=== PATIENT | female | born 1990 | race Caucasian/White ===

== ENCOUNTER 2016-11-08 20:15 | Emergency (ER) | payer OTHER ==
[~2016-11-08] VITALS: Ht 154.9 cm; Wt 44.5 kg
[2016-11-08 20:20] VITALS: Ht 154.9 cm; Wt 44.5 kg
[2016-11-08] MEDS ORDERED: LORAZEPAM 0.5 MG TAB PO ONE (22:00)
[2016-11-08 22:07] LABS: BASOPHILS % 0.4 % (0.0-2.0); EOSINOPHILS # 0.1 10^3/ul (0.0-0.5); EOSINOPHILS % 0.9 % (0.0-7.0); HEMATOCRIT 38.5 % (37.0-47.0); HEMOGLOBIN 12.9 g/dl (12.0-16.0); LYMPHOCYTES # 2.5 10^3/ul (0.8-2.9); LYMPHOCYTES % 24.1 % (15.0-51.0); MEAN CORPUSCULAR HEMOGLOBIN 30.1 pg (29.0-33.0); MEAN CORPUSCULAR HGB CONC 33.5 g/dl (32.0-37.0); MEAN CORPUSCULAR VOLUME 89.7 fl (82.0-101.0); MEAN PLATELET VOLUME 9.1 fl (7.4-10.4); MONOCYTE # 0.5 10^3/ul (0.3-0.9); MONOCYTES % 4.4 % (0.0-11.0); NEUTROPHIL # 7.3 10^3/ul (1.6-7.5); NEUTROPHILS % 69.8 % (39.0-77.0); PLATELET COUNT 339 10^3/UL (140-415); RED BLOOD COUNT 4.29 10^6/ul (4.20-5.40); RED CELL DISTRIBUTION WIDTH 12.2 % (11.5-14.5); WHITE BLOOD COUNT 10.4 10^3/ul (4.8-10.8)
[2016-11-08 22:08] LABS: URINE BLOOD (Dip) POC Negative (NEGATIVE)
[2016-11-08 22:25] LABS: CALCIUM 9.5 mg/dl (8.4-10.2); CREATININE 0.67 mg/dl (0.44-1.00)
[2016-11-08 22:30] LABS: POTASSIUM 3.9 mmol/L (3.5-5.1)
--- NOTE | 2016-11-08 22:44 | RADRPT ---
PROCEDURE: XR Chest. CLINICAL INDICATION: Chest pain. Shortness of breath. TECHNIQUE: Single frontal chest x-ray. COMPARISON: None available. FINDINGS: The cardiomediastinal silhouette is unremarkable. No pneumothorax, pleural effusion or consolidation is seen. No acute osseous abnormality is noted. IMPRESSION: 1. No acute cardiopulmonary abnormality. RPTAT: HFN .Trina Coleman MD, Date Time Electronically viewed and signed by .Trina Coleman MD, on 11/08/2016 22:43 .N/
[2016-11-08] MEDS ORDERED: LORA-441 PO (22:50)
[2016-11-08 22:59] VITALS: BP 127/59; PULSE 78; RESP 20
--- NOTE | 2016-11-08 23:01 | ERD ---
ER Documentation Chief Complaint Date/Time DATE: 11/08/16 TIME: 22:58 Chief Complaint LEFT CP SEEN BY PARAMEDICS AT SCHOOL, SOB AT THIS TIME,MAYBE "PANIC ATTACK" HPI This is a 25-year-old female presenting to emergency department with left-sided chest pain and shortness of breath earlier today about 1 hour prior to arrival. Patient states she was sitting in class reading when suddenly she felt sudden onset left-sided chest pain and shortness of breath. Patient states she had numbness and tingling to her extremities and felt like she was going to pass out. Patient went outside and states her teacher called paramedics. Paramedics came and told patient that she may have a "panic attack." ROS All systems reviewed and are negative except as per history of present illness. Medications Home Meds Active Scripts Lorazepam* (Ativan*) 0.5 Mg Tablet, 0.5 MG PO Q8, #10 TAB Prov:INOCENCIA WOMACK CHUY 11/08/16 PMhx/Soc Medical and Surgical Hx: pt denies Medical Hx, pt denies Surgical Hx Hx Alcohol Use: Yes Hx Substance Use: No Hx Tobacco Use: No Smoking Status: Never smoker Physical Exam Vitals Vital Signs Date Time Temp Pulse Resp B/P Pulse Ox O2 Delivery O2 Flow Rate FiO2 11/08/16 22:59 78 20 127/59 99 Room Air 11/08/16 20:20 99.3 83 18 131/63 100 Physical Exam Const: No acute distress, alert and oriented to person, place and time Head: Atraumatic Eyes: Normal Conjunctiva ENT: Normal External Ears, Nose and Mouth. Neck: Full range of motion..~ No meningismus. Resp: Clear to auscultation bilaterally Cardio: Regular rate and rhythm, no murmurs Abd: Soft, non tender, non distended. Normal bowel sounds Skin: No petechiae or rashes Back: No midline or flank tenderness Ext: No cyanosis, or edema Neur: Awake and alert Psych: Normal Mood and Affect Result Diagram: 11/08/16214711/08/162147 Results 24 hrs Laboratory Tests Test 11/08/16 21:48 11/08/16 22:15 White Blood Count 10.410^3/ul Red Blood Count 4.2910^6/ul Hemoglobin 12.9g/dl Hematocrit 38.5% Mean Corpuscular Volume 89.7fl Mean Corpuscular Hemoglobin 30.1pg Mean Corpuscular Hemoglobin Concent 33.5g/dl Red Cell Distribution Width 12.2% Platelet Count 90705^3/UL Mean Platelet Volume 9.1fl Neutrophils % 69.8% Lymphocytes % 24.1% Monocytes % 4.4% Eosinophils % 0.9% Basophils % 0.4% Nucleated Red Blood Cells % 0.0/100WBC Neutrophils # 7.310^3/ul Lymphocytes # 2.510^3/ul Monocytes # 0.510^3/ul Eosinophils # 0.110^3/ul Basophils # 0.010^3/ul Nucleated Red Blood Cells # 0.010^3/ul Sodium Level 138mmol/L Potassium Level 3.9mmol/L Chloride Level 104mmol/L Carbon Dioxide Level 24mmol/L Anion Gap 14 Blood Urea Nitrogen 11mg/dl Creatinine 0.67mg/dl Glucose Level 97mg/dl Calcium Level 9.5mg/dl Bedside Urine pH (LAB) 6.5 Bedside Urine Protein (LAB) Negative Bedside Urine Glucose (UA) Negative Bedside Urine Ketones (LAB) Negative Bedside Urine Blood Negative Bedside Urine Nitrite (LAB) Negative Bedside Urine Leukocyte Esterase (L Negative Current Medications Medications (Trade) Dose Ordered Sig/Yadi Route PRN Reason Start Time Stop Time Status Last Admin Dose Admin Lorazepam (Ativan) 0.5 mg ONCE ONCE PO 11/08/16 22:00 11/08/16 22:01 DC 11/08/16 22:12 Procedures/[place] [id number] Radiology Main Line: [phone] DIAGNOSTIC IMAGING REPORT Patient: MAXIMUS HICKEY : 1990 Age: 25 Sex: F MR #: [id number] DOS: 11/08/16 2138 Ordering MD: INOCENCIA WOMACK NP Location: [facility] Room/Bed: PROCEDURE: XR Chest. CLINICAL INDICATION: Chest pain. Shortness of breath. TECHNIQUE: Single frontal chest x-ray. COMPARISON: None available. FINDINGS: The cardiomediastinal silhouette is unremarkable. No pneumothorax, pleural effusion or consolidation is seen. No acute osseous abnormality is noted. IMPRESSION: 1. No acute cardiopulmonary abnormality. EKG: As interpreted by myself and Dr. Borm Rate/Rhythm: Normal sinus rhythm with sinus arrhythmia, heart rate 85 bpm QRS, ST, T-waves: No changes consistent w/ acute ischemia Impression: No evidence of ischemia or arrhythmia MDM: This is a 25-year-old female presenting to emergency department with chest pain, shortness of breath and possible anxiety starting earlier today about 1 hour prior to arrival. Patient states currently she is feeling better and not feeling short of breath. Denies chest pain or difficulty breathing. States she still has some chest tightness. Vital signs are stable. No signs or symptoms of respiratory distress. Oxygen saturation 100% on room air with 18 respirations per minute. Labs, urine, EKG and chest x-ray ordered. Patient given Lorazepam 0.5 mg p.o. while in the ED. CBC shows no significant electrolyte imbalance. Anemia or infection. BMP shows no significant electrolyte imbalance. Urine dip is negative for infection. Urine is negative. EKG shows normal sinus rhythm with sinus arrhythmia with heart rate 85 bpm. Chest x-ray reviewed by radiologist as no acute cardiopulmonary abnormality. Upon reassessment, patient states chest pain, shortness of breath has improved. Patient no longer feels anxious. Differential diagnosis includes but not limited to pneumonia, Anxiety,bronchitis , pleurisy, costochondritis, gastroesophageal reflux,musculoskeletal chest pain and esophageal spasm. Low suspicion for acute coronary syndrome, pulmonary embolism, pneumothorax, aortic dissection and myocardial infarction. Patient is appropriate for outpatient management and will be discharged as stable. Patient given prescription for lorazepam 0.5 mg #10.Instructed patient to follow up with primary care provider in the next 24-48 hours. Resources provided. Return to ED for worsening pain, abdominal pain, vomiting, diarrhea, high fever or any new or worsening symptoms. Patient verbalizes understanding. All questions answered at discharge. Disclaimer: Inadvertent spelling and grammatical errors are likely due to EHR/ dictation software use and do not reflect on the overall quality of patient care. Also, please note that the electronic time recorded on this note does not necessarily reflect the actual time of the patient encounter. Departure Diagnosis: Primary Impression: Chest pain Chest pain type: unspecified Qualified Code: R07.9 - Chest pain, unspecified type Additional Impression: Anxiety Condition: Stable Patient Instructions: Your Body's Response to Anxiety, Anxiety Reaction, Chest Pain, Uncertain Cause Referrals: [facility] YOU HAVE RECEIVED A MEDICAL SCREENING EXAM AND THE RESULTS INDICATE THAT YOU DO NOT HAVE A CONDITION THAT REQUIRES URGENT TREATMENT IN THE EMERGENCY DEPARTMENT. FURTHER EVALUATION AND TREATMENT OF YOUR CONDITION CAN WAIT UNTIL YOU ARE SEEN IN YOUR DOCTORS OFFICE WITHIN THE NEXT 1-2 DAYS. IT IS YOUR RESPONSIBILITY TO MAKE AN APPOINTMENT FOR FOLOW-UP CARE. IF YOU HAVE A PRIMARY DOCTOR --you should call your primary doctor and schedule an appointment IF YOU DO NOT HAVE A PRIMARY DOCTOR YOU CAN CALL OUR PHYSICIAN REFERRAL HOTLINE AT IF YOU CAN NOT AFFORD TO SEE A PHYSICIAN YOU CAN CHOSE FROM THE FOLLOWING [facility] [address] [facility]. [facility] [address] [facility] [address] [facility] [facility] [address] [facility] [address] [facility]. [facility] [address] [facility]. [facility] YOU HAVE RECEIVED A MEDICAL SCREENING EXAM AND THE RESULTS INDICATE THAT YOU DO NOT HAVE A CONDITION THAT REQUIRES URGENT TREATMENT IN THE EMERGENCY DEPARTMENT. FURTHER EVALUATION AND TREATMENT OF YOUR CONDITION CAN WAIT UNTIL YOU ARE SEEN IN YOUR DOCTORS OFFICE WITHIN THE NEXT 1-2 DAYS. IT IS YOUR RESPONSIBILITY TO MAKE AN APPOINTMENT FOR FOLOW-UP CARE. IF YOU HAVE A PRIMARY DOCTOR --you should call your primary doctor and schedule and appointment IF YOU DO NOT HAVE A PRIMARY DOCTOR YOU CAN CALL OUR PHYSICIAN REFERRAL HOTLINE AT . IF YOU CAN NOT AFFORD TO SEE A PHYSICIAN YOU CAN CHOSE FROM THE FOLLOWING [facility] INSTITUTIONS: [facility] [address] [place] [address] [facility] [address] [place] [address] [facility] [address] [place] [address] Additional Instructions: Call your primary care doctor TOMORROW for an appointment during the next 2-3 days.See the doctor sooner or return here if your condition worsens before your appointment time. Return to ED for any high fever, chest pain, difficulty breathing, shortness breath, wheezing, vomiting, diarrhea, abdominal pain or any new or worsening symptoms. INOCENCIA WOMACK NP Nov 08, 2016 23:01
== END 2016-11-08 22:59 | disposition home or self-care (01) ==
LOC: FTE 20:15
DX: R07.9 Chest pain, unspecified (principal); F41.9 Anxiety disorder, unspecified
CPT/HCPCS: 36415; 71010; 80048; 81003; 85025; 93005; Z7502; Z7610

== ENCOUNTER 2016-11-16 17:04 | Emergency (ER) | payer OTHER ==
[~2016-11-16] VITALS: Ht 152.4 cm; Wt 43.0 kg
[~2016-11-16 17:04] MED LIST: LORA-441 PO
[2016-11-16 17:10] VITALS: Ht 152.4 cm; Wt 43.0 kg
[2016-11-16] MEDS ORDERED: AMOX500C2 PO (19:06)
[2016-11-16] MEDS ORDERED: ACET500C5 PO (19:06)
--- NOTE | 2016-11-16 19:16 | ERD ---
ER Documentation Chief Complaint Date/Time DATE: 11/16/16 TIME: 19:09 Chief Complaint Complains of fever x 3 days HPI 26-year-old female presents with fever and sore throat for the last day. She has cough, vomiting, abdominal pain, diarrhea, urinary complaints. ROS All systems reviewed and are negative except as per history of present illness. Medications Home Meds Active Scripts Acetaminophen* (Tylophen*) 500 Mg Capsule, 1 CAP PO Q6H Y for PAIN AND OR ELEVATED TEMP, #15 CAP Prov:NILESH FORTE MD 11/16/16 Amoxicillin* (Amoxicillin*) 500 Mg Cap, 500 MG PO TID for 10 Days, CAP Prov:NILESH FORTE MD 11/16/16 Lorazepam* (Ativan*) 0.5 Mg Tablet, 0.5 MG PO Q8, #10 TAB Prov:INOCENCIA WOMACK NP 11/08/16 PMhx/Soc Hx Alcohol Use: Yes Hx Substance Use: No Hx Tobacco Use: No Physical Exam Vitals Vital Signs Date Time Temp Pulse Resp B/P Pulse Ox O2 Delivery O2 Flow Rate FiO2 11/16/16 17:10 102.5 139 20 113/59 95 Physical Exam Const: [], [id number]. Head: Atraumatic Eyes: Normal Conjunctiva ENT: Normal External Ears, Nose and Mouth. TMs normal. Erythema of the posterior oropharynx with 2+ tonsils and exudate. Neck: Full range of motion..~ No meningismus. Resp: Clear to auscultation bilaterally Cardio: Regular rate and rhythm, no murmurs Abd: Soft, non tender, non distended. Normal bowel sounds Skin: No petechiae or rashes Back: No midline or flank tenderness Ext: No cyanosis, or edema Neur: Awake and alert Psych: Normal Mood and Affect Results 24 hrs Current Medications Medications (Trade) Dose Ordered Sig/Yadi Route PRN Reason Start Time Stop Time Status Last Admin Dose Admin Acetaminophen (Tylenol Tab) 650 mg ONCE ONCE PO 11/16/16 19:30 11/16/16 19:31 Procedures/MDM Patient presents with febrile illness and pharyngitis. Treated with amoxicillin and Tylenol here and continued fever control at home. There is no evidence of respiratory distress or abscess or airway obstruction. The patient was stable with no new complaints during the ER course. Clinically, there is no current evidence to suggest meningitis, sepsis, acute abdomen, pneumonia, acute coronary syndrome, pulmonary embolism, or any other emergent condition appearing to require further evaluation or hospitalization. The patient should certainly return for any new or worsening symptoms per the aftercare instructions. They should otherwise follow-up with her primary care doctor for reevaluation this week. Departure Diagnosis: Primary Impression: Pharyngitis Pharyngitis/tonsillitis etiology: unspecified etiology Qualified Code: J02.9 - Pharyngitis, unspecified etiology Additional Impression: Fever Fever type: unspecified Qualified Code: R50.9 - Fever, unspecified fever cause Condition: Stable Patient Instructions: Fever Control (Adult), Pharyngitis, Strep (Presumed) Additional Instructions: Recheck for new or worsening symptoms with primary care doctor. NILESH FORTE MD Nov 16, 2016 19:16
[2016-11-16] MEDS ORDERED: ACETAMINOPHEN 325 MG TAB PO ONE (19:30)
[2016-11-16 20:09] VITALS: BP 97/57; PULSE 102; RESP 20; TEMP 97.8
== END 2016-11-16 20:09 | disposition home or self-care (01) ==
LOC: FTE 17:04
DX: J02.9 Acute pharyngitis, unspecified (principal)
CPT/HCPCS: Z7502; Z7610; 99283

== ENCOUNTER 2017-12-14 21:14 | Emergency (ER) | END 2017-12-14 22:47 | disposition home or self-care (01) ==

== ENCOUNTER 2018-04-20 05:02 | Emergency (ER) | payer OTHER ==
[~2018-04-20] VITALS: Wt 43.4 kg
[~2018-04-20 05:02] MED LIST changes: +ACET500C5 PO; +AMOX500C2 PO; +BEN25 PO; +HC30CR25 TOP
[2018-04-20 05:09] VITALS: BP 115/76; PULSE 107; RESP 18
[2018-04-20] MEDS ORDERED: ONDA4TAB8 PO (06:11)
[2018-04-20] MEDS ORDERED: AMOX1TAB9 PO (06:11)
[2018-04-20] MEDS ORDERED: IBUP-1542 PO (06:11)
--- NOTE | 2018-04-20 06:15 | ERD ---
ER Documentation Chief Complaint Chief Complaint earache/sore throat/cough x 5 days HPI 27-year-old otherwise healthy female was diagnosed with a flulike illness beginning approximately 1 week ago. Over the last few days, she has had increasing throat pain and then more severe right ear pain. Over the last 24 hours, she has severe right ear pain and decreased hearing from her right ear. She reports no drainage or discharge. She reports no trauma. ROS All systems reviewed and are negative except as per history of present illness. Medications Home Meds Active Scripts Ondansetron Hcl* (Zofran*) 4 Mg Tablet, 4 MG PO Q6H for NAUSEA AND/OR VOMITING, #30 TAB Prov:DARSHANA KIM 04/20/18 Ibuprofen* (Motrin*) 600 Mg Tab, 600 MG PO Q6 for pain, #30 TAB Prov:DARSHANA KIM 04/20/18 Amoxicillin/Potassium Clav (Amox-Clav 500-125 mg Tablet) 500-125 mg Tab, 1 TAB PO BID for 7 Days, TAB Prov:DARSHANA KIM 04/20/18 Diphenhydramine Hcl* (Benadryl*) 25 Mg Cap, 25 MG PO Q6, #30 CAP Prov:BERKLEY LOMBARDI PA-C 12/14/17 Hydrocortisone* Topical (Hydrocortisone* Topical) 2.5%-28.3 Gm Cream..g., 1 APPLIC TOP BID, #1 TUB Prov:BERKLEY LOMBARDI PA-C 12/14/17 Acetaminophen* (Tylophen*) 500 Mg Capsule, 1 CAP PO Q6H PRN for PAIN AND OR ELEVATED TEMP, #15 CAP Prov:NILESH FORTE MD 11/16/16 Amoxicillin* (Amoxicillin*) 500 Mg Cap, 500 MG PO TID for 10 Days, CAP Prov:NILESH FORTE MD 11/16/16 Lorazepam* (Ativan*) 0.5 Mg Tablet, 0.5 MG PO Q8, #10 TAB Prov:INOCENCIA WOMACK NP 11/08/16 Allergies Allergies: Coded Allergies: prednisolone (Verified Allergy, Unknown, itching, 04/20/18) PMhx/Soc History of Surgery: No Anesthesia Reaction: No Hx Neurological Disorder: No Hx Respiratory Disorders: No Hx Cardiac Disorders: No Hx Psychiatric Problems: No Hx Miscellaneous Medical Probl: No Hx Alcohol Use: Yes Hx Substance Use: No Hx Tobacco Use: No FmHx Noncontributory for chief complaint Physical Exam Vitals Vital Signs Date Temp Pulse Resp B/P (MAP) Pulse Ox O2 O2 Flow FiO2 Time Delivery Rate 04/20/18 98.0 107 18 115/76 99 05:09 (89) Physical Exam GENERAL: The patient is well developed and appropriate for usual state of health in no apparent distress HEENT: Pupils equal, round, and reactive to light. EOMI. There is no scleral icterus. Right tympanic membrane is significantly inflamed with fluid behind it. Left tympanic membrane appears to be normal. NECK: C-spine is soft and supple, there is no meningismus. There is no cervical lymphadenopathy. LUNGS: Clear to auscultation bilaterally. There are no rales, wheezes or rhonchi. HEART: Regular rate and rhythm, no murmurs, clicks, rubs or gallops. Procedures/MDM Patient was taken to a room, seen and examined Medical decision making: Otherwise healthy 27-year-old female presents with an otitis media complicating a viral illness. She is already been on Tamiflu by her primary care doctor. I will be placing her on antibiotics for her otitis media. At this time she appears to be nontoxic with no signs of mastoiditis or other high risk separative concerns and seems appropriate for outpatient care. Departure Diagnosis: Primary Impression: Right ear pain Condition: Stable Patient Instructions: Otitis Media, Abx Tx (Adult) DARSHANA KIM Apr 20, 2018 06:15
== END 2018-04-20 07:00 | disposition home or self-care (01) ==
LOC: FTE 05:02
DX: H92.01 Otalgia, right ear (principal)
CPT/HCPCS: 99283